=== PATIENT | female | born 1970 | race Caucasian/White ===

== ENCOUNTER → 2016-04-26 | Outpatient (CLI) | payer OTHER ==
[~2016-04-26] MED LIST: ASPIRIN 32325 MG/TAB PO; ATIVAN 1MG T1 MG/TAB PO; BCP TD; CRESTOR 10MG10 MG PO; ELAVIL50 MG PO; LEVAQUIN 5500 MG/TA1 PO; MOTRIN 600600 MG/TAB PO; NIASPAN1000 MG PO; PERCOCET 325 MG1 TA2 PO; PRILOSEC10 MG PO
== END ==
LOC: COL.RAD 07:25
DX: R10.11 Right upper quadrant pain (principal); R10.31 Right lower quadrant pain

== ENCOUNTER → 2017-02-25 | Outpatient (CLI) | payer OTHER | LOC: MC.RAD 07:00 | DX: Z12.31 Encounter for screening mammogram for malignant neoplasm of breast (principal) ==

== ENCOUNTER → 2018-03-28 | Outpatient (CLI) | payer OTHER | LOC: MC.RAD 08:20 | DX: Z12.31 Encounter for screening mammogram for malignant neoplasm of breast (principal); D24.2 Benign neoplasm of left breast; D24.1 Benign neoplasm of right breast ==

== ENCOUNTER → 2018-04-01 | Outpatient (CLI) | payer OTHER | LOC: MC.RAD 06:59 | DX: N63.21 Unspecified lump in the left breast, upper outer quadrant (principal); N63.11 Unspecified lump in the right breast, upper outer quadrant; N64.89 Other specified disorders of breast; Z90.49 Acquired absence of other specified parts of digestive tract | CPT/HCPCS: G0279 ==

== ENCOUNTER → 2020-04-20 | Outpatient (CLI) | payer OTHER | LOC: MC.RAD 09:36 | DX: Z12.31 Encounter for screening mammogram for malignant neoplasm of breast (principal); N64.9 Disorder of breast, unspecified ==

== ENCOUNTER 2021-05-14 21:05 | Emergency (ER) | payer OTHER ==
[2021-05-14 21:09] VITALS: TEMP 98.4
[2021-05-14 22:32] VITALS: BP 131/85; PULSE 63
== END 2021-05-14 22:32 | disposition home or self-care (01) ==
LOC: COL.ER 21:05
DX: T78.49XA Other allergy, initial encounter (principal); F41.9 Anxiety disorder, unspecified; E78.5 Hyperlipidemia, unspecified; Z79.899 Other long term (current) drug therapy
CPT/HCPCS: J8540

== ENCOUNTER → 2021-05-19 | Outpatient (CLI) | payer OTHER | LOC: MC.RAD 07:54 | DX: Z12.31 Encounter for screening mammogram for malignant neoplasm of breast (principal); N64.9 Disorder of breast, unspecified ==

== ENCOUNTER → 2021-05-24 | Outpatient (CLI) | payer OTHER | LOC: MC.RAD 08:00 | DX: N63.21 Unspecified lump in the left breast, upper outer quadrant (principal) ==

== ENCOUNTER → 2021-09-21 | Outpatient (CLI) | payer OTHER | LOC: MC.RAD 09:55 | DX: N60.12 Diffuse cystic mastopathy of left breast (principal) ==

== ENCOUNTER → 2023-08-16 | Outpatient (CLI) | payer OTHER | LOC: MC.RAD 07:38 | DX: Z12.31 Encounter for screening mammogram for malignant neoplasm of breast (principal) ==